=== PATIENT | female | born 1980 | race Caucasian/White ===

== ENCOUNTER 2022-12-04 23:43 | Emergency (ER) | payer BC ==
[2022-12-04 23:55] VITALS: BP 126/80; PULSE 80; RESP 14; TEMP 98
[2022-12-04] MEDS ORDERED: PROPARACAINE 0.5% OPHTH DROPS 15 ML BTL LEFT EYE STA (23:59)
[2022-12-04] MEDS ORDERED: FLUORESCEIN STRIPS 1 MG STRIP LEFT EYE ONE (23:59)
[2022-12-05] MEDS ORDERED: DIPH,PERTUS(ACELL)TETVAC-LF 0.5 ML VIAL IM ONE
--- NOTE | 2022-12-05 00:27 | ED ---
Eye Problem HPI - General Chief complaint: Eye Problems Stated complaint: facial injury Time Seen by Provider: 12/04/22 23:59 Source: patient, family Mode of arrival: ambulatory - History of Present Illness Initial comments: this is a pleasant 42-year-old female that presents ambulatory to the emergency room after being hit in the left eye with a plastic lid. Complaining of irr itation but denies any visual changes. No tearing. Unsure if tetanus is up-to-date. No medical history. chief complaint: eye injury -: hour(s) (1) Onset Description: sudden Location: left eye If Injury: direct trauma Eye Symptoms: pain Severity: moderate Severity scale (1-10): 5 Consistency: constant Context: trauma Associated Symptoms: none Treatments Prior to Arrival: none - Related Data Previous Rx's Medication Instructions Recorded Ciprofloxacin Ophth Soln [Ciloxan 2 drops LEFT EYE Q6H 5 Days #2.5 ml 12/05/22 0.3% Ophth Soln] Allergies Allergy/AdvReac Type Severity Reaction Status Date / Time Penicillins Allergy Rash/Hives Verified 12/04/22 23:55 Review of Systems ROS Statement: Those systems with pertinent positive or pertinent negative responses have been documented in the HPI. ROS Other: All systems not noted in ROS Statement are negative. Past Medical History Past Medical History: No Reported History Additional Past Surgical History / Comment(s): rectal surgery, Smoking Status: Never smoker Past Alcohol Use History: None Reported Past Drug Use History: None Reported General Exam General appearance: alert, in no apparent distress Head exam: Present: atraumatic, normocephalic, normal inspection Eye exam: Present: normal appearance, PERRL, EOMI. Absent: scleral icterus, conjunctival injection, nystagmus, periorbital swelling, periorbital tenderness Pupils: Present: normal accommodation Expanded Eyelids: Normal Inspection: Bilateral Pupils: Regular, Round: Bilateral Sclera/Conjunctival: Normal Inspection: Bilateral Anterior chamber: Normal Inspection: Bilateral Neck exam: Absent: tenderness, meningismus Respiratory exam: Absent: respiratory distress, accessory muscle use Cardiovascular Exam: Present: regular rate Extremities exam: Present: normal capillary refill Neurological exam: Present: alert, oriented X3, normal gait Psychiatric exam: Present: normal affect, normal mood Skin exam: Present: warm, dry, normal color. Absent: cyanosis, diaphoretic, petechiae, pallor Course Vital Signs 12/04/22 23:48 Temperature 98.0 F Pulse Rate 80 Respiratory 14 Rate Blood Pressure 126/80 O2 Sat by Pulse 100 Oximetry Medical Decision Making - Medical Decision Making Proparacaine drops instilled and fluorescein stain with quispe lamp exam performed. There is slight uptake of the fluorescein medial aspect of the cornea consistent with an abrasion. No evidence of foreign body. Negative Mary Jane sign. Visual acuity 20/20 left eye, 20/15 right eye. She will be prescribed cipro drops and referred to ophthalmology on Wednesday. Directed to return with any new or concerning symptoms. Tetanus shot was updated. Case discussed with Dr Salinas Was pt. sent in by a medical professional or institution (, [facility], [facility], urgent care, hospital, or [facility]...) When possible be specific @ -[No] Did you speak to anyone other than the patient for history (EMS, parent, family, police, friend...)? What history was obtained from this source @ family Did you review nursing and triage notes (agree or disagree)? Why? @ -[I reviewed and agree with nursing and triage notes] Were old charts reviewed (outside hosp., previous admission, EMS record, old EKG, old radiological studies, urgent care reports/EKG's, [facility] records)? Report findings @ -[No old charts were reviewed] Differential Diagnosis (chest pain, altered mental status, abdominal pain women, abdominal pain men, vaginal bleeding, weakness, fever, dyspnea, syncope, headache, dizziness, GI bleed, back pain, seizure, CVA, palpatations, mental health, musculoskeletal)? @ -corneal abrasion, subconjunctival hemorrhage, globe rupture, foreign body this is not all-inclusive list EKG interpreted by me (3pts min.). @ n/a X-rays interpreted by me (1pt min.). @ -[None done] CT interpreted by me (1pt min.). @ -[None done] U/S interpreted by me (1pt. min.). @ -[None done] What testing was considered but not performed or refused? (CT, X-rays, U/S, labs)? Why? @ -[None] What meds were considered but not given or refused? Why? @ -[None] Did you discuss the management of the patient with other professionals (professionals i.e. , [facility], [facility], lab, RT, psych nurse, rn social services, intramural director, teacher, admissions officer, casey saw operator)? Give summary @ -[No] Was smoking cessation discussed for >3mins.? @ -[No] Was critical care preformed (if so, how long)? @ -[No] Were there social determinants of health that impacted care today? How? (Homelessness, low income, unemployed, alcoholism, drug addiction, transportation, low edu. Level, literacy, decrease access to med. care, prison, rehab)? @ -[No] Was there de-escalation of care discussed even if they declined (Discuss DNR or withdrawal of care, Hospice)? DNR status @ -[No] What co-morbidities impacted this encounter? (DM, HTN, Smoking, COPD, CAD, Cancer, CVA, ARF, Chemo, Hep., AIDS, mental health diagnosis, sleep apnea, morbid obesity)? @ -[None] Was patient admitted / discharged? Hospital course, mention meds given and route, prescriptions, significant lab abnormalities, going to OR and other pertinent info. @ discharged Undiagnosed new problem with uncertain prognosis? @ -[No] Drug Therapy requiring intensive monitoring for toxicity (Heparin, Nitro, Insulin, Cardizem)? @ -[No] Were any procedures done? @ Quispe lamp exam Diagnosis/symptom? @ corneal abrasion Acute, or Chronic, or Acute on Chronic? @ acute Uncomplicated (without systemic symptoms) or Complicated (systemic symptoms)? @ uncomplicated Side effects of treatment? @ -[No] Exacerbation, Progression, or Severe Exacerbation? @ -[No] Poses a threat to life or bodily function? How? (Chest pain, [place], MD, pneumonia, PE, COPD, DKA, ARF, appy, cholecystitis, CVA, Diverticulitis, Homicidal, Suicidal, threat to staff... and all critical care pts) @ -[No] Disposition Clinical Impression: Corneal abrasion Disposition: HOME SELF-CARE Condition: Good Instructions (If sedation given, give patient instructions): Abrasion (ED) Additional Instructions: use antibiotic drops as prescribed. Follow-up with ophthalmology next week for reevaluation Prescriptions: Ciprofloxacin Ophth Soln [Ciloxan 0.3% Ophth Soln] 2 drops LEFT EYE Q6H 5 Days #2.5 ml Is patient prescribed a controlled substance at d/c from ED?: No Referrals: None,Stated [REFERRING] - 1-2 days Josiah Escobedo MD [STAFF PHYSICIAN] - 1-2 days Time of Disposition: 00:36
== END 2022-12-05 00:44 | disposition home or self-care (01) ==
LOC: EC 23:43
DX: S05.02XA Injury of conjunctiva and corneal abrasion without foreign body, left eye, initial encounter (principal); Z88.0 Allergy status to penicillin; Z23 Encounter for immunization; W22.8XXA Striking against or struck by other objects, initial encounter
CPT/HCPCS: 90471; 90715; 99282